=== PATIENT | female | born 1990 | race Caucasian/White ===

== ENCOUNTER → 2018-03-02 19:26 | Outpatient (CLI) | payer BC, SELFPAY ==
[2018-03-05 11:42] LABS: HPV Reflexed? NOT INDICATED
== END ==
PROVIDERS: Visit Provider Obstetrics & Gynecology
DX: Z12.4 Encounter for screening for malignant neoplasm of cervix (principal); Z12.72 Encounter for screening for malignant neoplasm of vagina
CPT/HCPCS: 88175; G0145

== ENCOUNTER → 2019-03-01 | Outpatient (CLI) | payer BC, SELFPAY ==
[2019-03-07 12:00] LABS: HPV HC, High Risk Negative (Negative)
== END | disposition home or self-care (01) ==
PROVIDERS: Visit Provider Obstetrics & Gynecology
DX: Z12.4 Encounter for screening for malignant neoplasm of cervix (principal)
CPT/HCPCS: 87624; 88175; G0145